=== PATIENT | male | born 1980 | race Caucasian/White ===

== ENCOUNTER 2018-08-24 15:19 | Observation (INO) ==
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
[2018-08-24] MEDS ORDERED: PEPCID 20 MG IV PREMIX* 20 MG/50 ML BAG IV PRN (17:57)
[2018-08-24] MEDS ORDERED: ZOFRAN INJ 4 MG VIAL IVP PRN (17:57)
[2018-08-24 18:32] LABS: BASOPHILS # (AUTO) 0.1 X10^3/uL (0.0-0.1); EOSINOPHILS # (AUTO) 0.3 x10^3/uL (0.0-0.2); HEMATOCRIT 48.8 % (42.0-54.0); LYMPHOCYTES # (AUTO) 2.7 X10^3/uL (1.3-2.9); LYMPHOCYTES % (AUTO) 27.2 % (21.0-51.0); MEAN CORPUSCULAR HEMOGLOBIN 30.3 pg (27.0-34.0); MEAN CORPUSCULAR HGB CONC 34.8 g/dL (33.0-35.0); MEAN CORPUSCULAR VOLUME 86.9 fL (80.0-100.0); MEAN PLATELET VOLUME 7.6 fL (7.4-11.0); MONOCYTES # (AUTO) 0.9 x10^3/uL (0.3-0.8); MONOCYTES % (AUTO) 8.7 % (0.0-13.0); NEUTROPHILS % (AUTO) 60.1 % (42.0-75.0); PLATELET COUNT 297 X10^3/uL (150.0-450.0); RED BLOOD COUNT 5.61 X10^6/uL (4.7-6.0); RED CELL DISTRIBUTION WIDTH 13.5 % (11.6-16.5); WHITE BLOOD COUNT 9.9 X10^3/uL (3.6-10.0)
[2018-08-24] MEDS: CIPRO IV 400 MG PREMIX* 400 MG/200 ML IV.SOLN. IV SCH ×2 (18:38→20:13)
[2018-08-24 18:39] LABS: ALANINE AMINOTRANSFERASE 48 Units/L (12-78); ALKALINE PHOSPHATASE 55 Units/L (46-116); AMYLASE 41 Units/L (25-115); ASPARTATE AMINO TRANSFERASE 25 Units/L (15-37); BLOOD UREA NITROGEN 9 mg/dL (7-18); CARBON DIOXIDE 27.7 mmol/L (21-32); CHLORIDE 101 mmol/L (98-107); CREATININE 1.14 mg/dL (0.70-1.30); LIPASE 183 Units/L (73-393); SODIUM 137 mmol/L (136-145); TOTAL PROTEIN 7.8 g/dL (6.4-8.2); eGFR NON BLACK RACES > 60 (>60)
[2018-08-24] MEDS: MORPHINE SULFATE INJ 2 MG INJ IVP PRN ×2 (18:39→22:52)
[2018-08-24] MEDS: PHENERGAN INJ 25 MG IVP PRN (18:39)
[2018-08-24] MEDS: NS 1000 ML 1,000 ML IV SCH (18:39)
[2018-08-24] MEDS: AMBIEN PO PRN (20:10)
[2018-08-24] MEDS: NICOTINE PATCH TD SCH (20:10)
[2018-08-24] MEDS: FLAGYL IV PREMIX 500 MG BAG 500 MG/100 ML BAG IV SCH (20:13)
[2018-08-24 22:44] LABS: BILIRUBIN,URINE NEGATIVE (NEGATIVE); BLOOD/HEMOGLOBIN,URINE NEGATIVE (NEGATIVE); GLUCOSE, URINE NEGATIVE (NEGATIVE); KETONES,URINE NEGATIVE (NEGATIVE); LEUKOCYTE ESTERASE ,URINE NEGATIVE (NEGATIVE); NITRITES,URINE NEGATIVE (NEGATIVE); PH,URINE 6.5 (5.0 - 8.0); PROTEIN,URINE NEGATIVE (NEGATIVE); UROBILINOGEN,URINE NORMAL (NORMAL)
[2018-08-24 22:45] LABS: APPEARANCE,URINE CLEAR (CLEAR); COLOR,URINE YELLOW (YELLOW)
[2018-08-25] MEDS: CIPRO IV 400 MG PREMIX* 400 MG/200 ML IV.SOLN. IV SCH ×3 (03:29→20:36)
[2018-08-25] MEDS: FLAGYL IV PREMIX 500 MG BAG 500 MG/100 ML BAG IV SCH ×4 (03:29→20:36)
[2018-08-25] MEDS: MORPHINE SULFATE INJ 2 MG INJ IVP PRN ×4 (03:43→20:38)
[2018-08-25] MEDS: NS 1000 ML 1,000 ML IV SCH ×3 (03:44→20:45)
[2018-08-25] MEDS: PHENERGAN INJ 25 MG IVP PRN ×2 (07:07→20:45)
[2018-08-25 07:42] LABS: BASOPHILS # (AUTO) 0.1 X10^3/uL (0.0-0.1); BASOPHILS % (AUTO) 0.9 % (0.2-1.0); EOSINOPHILS # (AUTO) 0.3 x10^3/uL (0.0-0.2); EOSINOPHILS % (AUTO) 4.1 % (0.9-2.9); HEMATOCRIT 46.1 % (42.0-54.0); LYMPHOCYTES # (AUTO) 2.1 X10^3/uL (1.3-2.9); LYMPHOCYTES % (AUTO) 26.3 % (21.0-51.0); MEAN CORPUSCULAR HEMOGLOBIN 29.6 pg (27.0-34.0); MEAN CORPUSCULAR HGB CONC 34.8 g/dL (33.0-35.0); MEAN CORPUSCULAR VOLUME 85.2 fL (80.0-100.0); MEAN PLATELET VOLUME 7.6 fL (7.4-11.0); MONOCYTES # (AUTO) 0.6 x10^3/uL (0.3-0.8); MONOCYTES % (AUTO) 8.1 % (0.0-13.0); NEUTROPHILS # (AUTO) 4.8 x10^3/uL (2.2-4.8); NEUTROPHILS % (AUTO) 60.6 % (42.0-75.0); PLATELET COUNT 269 X10^3/uL (150.0-450.0); RED BLOOD COUNT 5.41 X10^6/uL (4.7-6.0); RED CELL DISTRIBUTION WIDTH 13.7 % (11.6-16.5)
[2018-08-25 07:50] LABS: ALANINE AMINOTRANSFERASE 96 Units/L (12-78); ALBUMIN 3.6 g/dL (3.4-5.0); ALKALINE PHOSPHATASE 55 Units/L (46-116); ASPARTATE AMINO TRANSFERASE 86 Units/L (15-37); BLOOD UREA NITROGEN 10 mg/dL (7-18); CALCIUM 8.6 mg/dL (8.5-10.1); CARBON DIOXIDE 24.7 mmol/L (21-32); CHLORIDE 102 mmol/L (98-107); CREATININE 1.19 mg/dL (0.70-1.30); SODIUM 137 mmol/L (136-145); TOTAL PROTEIN 7.1 g/dL (6.4-8.2); eGFR NON BLACK RACES > 60 (>60)
[2018-08-25] MEDS: NICOTINE PATCH TD SCH (08:36)
[2018-08-25 10:48] LABS: STOOL FOR WBC NEGATIVE (NEGATIVE)
[2018-08-25] MEDS ORDERED: NS 100 ML IV 100 ML IV ONE (11:33)
--- NOTE | 2018-08-25 12:06 | CT ---
HISTORY: Acute abdominal pain. Study: CT abdomen and pelvis with contrast Comparison: None. Technique: Multiple axial images of the abdomen and pelvis were obtained from the lung bases to the pubic symphysis after the administration of IV contrast. Dose reduction techniques including Automated Exposure Control (AEC) and adjustment of mA and kV were utilized. Findings: Bibasilar scarring versus atelectasis. Otherwise, the visualized portions of the lung bases are unremarkable. Hepatomegaly and hepatic steatosis. No suspicious liver lesions. The spleen, pancreas, kidneys, and adrenal glands are unremarkable in their CT appearance. The gallbladder is unremarkable in its CT appearance. No significant mesenteric lymphadenopathy or stranding can be observed. No free fluid or free air is seen within the abdomen. Diverticulosis without CT evidence to suggest diverticulitis. Remaining large and small bowel are unremarkable. The appendix is surgically absent. The urinary bladder is grossly unremarkable. Degenerative changes of the spine. No aggressive osseous lesions. IMPRESSION: 1. No CT evidence of acute abdominal/pelvic pathology. 2. Other chronic findings as above. Reported By:
[2018-08-25 13:20] VITALS: BMI 31.7
--- NOTE | 2018-08-25 13:31 | PCM.PROG ---
Progress Note - Progress Note for Day of Date of Exam: 08/25/18 - Subjective Subjective: 38 WM DIRECT ADMIT ON 08/24 WITH ABDOMINAL PAIN, PROFUSE DIARRHEA WITH WEAKNESS. PT CO MUCOUS IN STOOL. PT WAS PREVIOSLY SEEN BY DR DAMON FOR PAIN, PENDING SCOPE. PT S/P GALLBLADDER REMOVAL ~6 MOS AGO, CO WORSENING DIARRRHEA SINCE THEN. PT WBC NORMAL AND RENAL FUCNCTION ALSO NORMAL. PT ON CIPRO AND FLAGYL WITH STOOL PENDING. PT IS NPO FOR CT THIS AM, WILL TRAIL ON WELCHOL AFTER STOOL SPECIMEN FOR TREATMENT OF CHRONIC DIARRHEA. - Past Medical Family Social History Past Med/Fam/Surg Hx: No changes since H&P Allergies: Allergies codeine Allergy (Verified 08/24/18 16:43) - Review of Systems ROS: No change since H&P - Vital Signs and I&O's Vital Signs: Temperature 97.9 F Pulse Rate [Right Brachial] 80 Respiratory Rate 18 Blood Pressure [Left Arm] 131/76 Blood Pressure [Right Arm] 121/76 O2 Sat by Pulse Oximetry 96 Intake and Output: Intake & Output 08/23/18 08/24/18 08/25/18 08/26/18 11:59 11:59 11:59 11:59 Intake Total 0 / 0 Balance 0 / 0 - Physical Exam Oriented: Normal Eyes: Normal Ear: Normal Nose: Normal Throat: Normal Cardiovascular: Normal : Normal Auscultation: Bowel Sounds: Normal Tenderness: LUQ, LLQ, Epigastric Skin: Normal Musculoskeletal: Normal Psychiatric: Normal Mood Description: Calm Affect: Normal Speech Pattern: Clear, Appropriate - Laboratory and Diagnostics Result Diagrams: 08/25/18 07:20 08/25/18 07:20 Labs: 08/25/18 10:05 Stool - Final Laboratory WBC 8.0 X10^3/uL (3.6-10.0) 08/25/18 07:20 RBC 5.41 X10^6/uL (4.7-6.0) 08/25/18 07:20 Hgb 16.0 g/dL (13.5-18.0) 08/25/18 07:20 Hct 46.1 % (42.0-54.0) 08/25/18 07:20 MCV 85.2 fL (80.0-100.0) 08/25/18 07:20 MCH 29.6 pg (27.0-34.0) 08/25/18 07:20 MCHC 34.8 g/dL (33.0-35.0) 08/25/18 07:20 RDW 13.7 % (11.6-16.5) 08/25/18 07:20 Plt Count 269 X10^3/uL (150.0-450.0) 08/25/18 07:20 MPV 7.6 fL (7.4-11.0) 08/25/18 07:20 Neut % (Auto) 60.6 % (42.0-75.0) 08/25/18 07:20 Lymph % (Auto) 26.3 % (21.0-51.0) 08/25/18 07:20 [place] % (Auto) 8.1 % (0.0-13.0) 08/25/18 07:20 Eos % (Auto) 4.1 % (0.9-2.9) H 08/25/18 07:20 Baso % (Auto) 0.9 % (0.2-1.0) 08/25/18 07:20 Neut # (Auto) 4.8 x10^3/uL (2.2-4.8) 08/25/18 07:20 Lymph # (Auto) 2.1 X10^3/uL (1.3-2.9) 08/25/18 07:20 [place] # (Auto) 0.6 x10^3/uL (0.3-0.8) 08/25/18 07:20 Eos # (Auto) 0.3 x10^3/uL (0.0-0.2) H 08/25/18 07:20 Baso # (Auto) 0.1 X10^3/uL (0.0-0.1) 08/25/18 07:20 Absolute Nucleated RBC 0.0 /100WBC 08/25/18 07:20 Sodium 137 mmol/L (136-145) 08/25/18 07:20 Corrected Sodium TNP 08/25/18 07:20 Potassium 4.0 mmol/L (3.5-5.1) 08/25/18 07:20 Chloride 102 mmol/L (98-107) 08/25/18 07:20 Carbon Dioxide 24.7 mmol/L (21-32) 08/25/18 07:20 BUN 10 mg/dL (7-18) 08/25/18 07:20 Creatinine 1.19 mg/dL (0.70-1.30) 08/25/18 07:20 Est GFR (MDRD) Af Amer > 60 (>60) 08/25/18 07:20 Est GFR (MDRD) Non-Af > 60 (>60) 08/25/18 07:20 Glucose 97 mg/dL (65-99) 08/25/18 07:20 Calcium 8.6 mg/dL (8.5-10.1) 08/25/18 07:20 Corrected Calcium TNP 08/25/18 07:20 Total Bilirubin 1.10 mg/dL (0.2-1.0) H 08/25/18 07:20 AST 86 Units/L (15-37) H 08/25/18 07:20 ALT 96 Units/L (12-78) H 08/25/18 07:20 Alkaline Phosphatase 55 Units/L (46-116) 08/25/18 07:20 Total Protein 7.1 g/dL (6.4-8.2) 08/25/18 07:20 Albumin 3.6 g/dL (3.4-5.0) 08/25/18 07:20 Globulin 3.5 g/dL (2.5-4.5) 08/25/18 07:20 Albumin/Globulin Ratio 1.0 Ratio (1.1-2.1) L 08/25/18 07:20 Amylase 41 Units/L (25-115) 08/24/18 18:09 Lipase 183 Units/L (73-393) 08/24/18 18:09 Specimen Type Clean catch urine 08/24/18 22:26 Urine Color Yellow (YELLOW) 08/24/18 22:26 Urine Appearance Clear (CLEAR) 08/24/18 22:26 Urine pH 6.5 (5.0 - 8.0) 08/24/18 22:26 Ur Specific Agar 1.010 (1.000-1.030) 08/24/18 22:26 Urine Protein Negative (NEGATIVE) 08/24/18 22:26 Urine Glucose (UA) Negative (NEGATIVE) 08/24/18 22:26 Urine Ketones Negative (NEGATIVE) 08/24/18 22:26 Urine Occult Blood Negative (NEGATIVE) 08/24/18 22:26 Urine Nitrite Negative (NEGATIVE) 08/24/18 22:26 Urine Bilirubin Negative (NEGATIVE) 08/24/18 22:26 Urine Urobilinogen Normal (NORMAL) 08/24/18 22:26 Ur Leukocyte Esterase Negative (NEGATIVE) 08/24/18 22:26 Stool Description 10g,brown,formed 08/25/18 10:05 Stl Occult Blood (IFOB) Negative (NEGATIVE) 08/25/18 10:05 Stool for White Cells Negative (NEGATIVE) 08/25/18 10:05 Stl C. diff Tox B Gene Negative (NEGATIVE) 08/25/18 10:05 Stl C. diff [id number] Negative (NEGATIVE) 08/25/18 10:05 - Plan (1) Abdominal pain Status: Acute Plan: Labs, CT ABD, Cipro, Flagyl, IVFs. ADVANCE DIET TOLERATED AFTER CT SCAN. STOOL STUDIES PENDING. PEPCID BID (2) Chronic diarrhea Status: Acute (3) Colitis Status: Acute Plan: Labs, CT ABD, Cipro, Flagyl, IVFs
[2018-08-25] MEDS: WELCHOL PO SCH (18:13)
[2018-08-25] MEDS ORDERED: VISTARIL PO PRN (18:30)
[2018-08-25] MEDS: AMBIEN PO PRN (20:36)
[2018-08-25] MEDS ORDERED: VORTIOXETINE 20 MG PO SCH (21:00)
[2018-08-26] MEDS: NS 1000 ML 1,000 ML IV SCH (01:09)
[2018-08-26] MEDS: FLAGYL IV PREMIX 500 MG BAG 500 MG/100 ML BAG IV SCH ×2 (02:12→08:33)
[2018-08-26] MEDS: MORPHINE SULFATE INJ 2 MG INJ IVP PRN ×2 (04:35→08:33)
[2018-08-26] MEDS: PHENERGAN INJ 25 MG IVP PRN (04:41)
[2018-08-26 05:31] LABS: ALANINE AMINOTRANSFERASE 64 Units/L (12-78); ALBUMIN 3.1 g/dL (3.4-5.0); ALKALINE PHOSPHATASE 50 Units/L (46-116); ASPARTATE AMINO TRANSFERASE 31 Units/L (15-37); BLOOD UREA NITROGEN 7 mg/dL (7-18); CALCIUM 8.1 mg/dL (8.5-10.1); CARBON DIOXIDE 26.3 mmol/L (21-32); CHLORIDE 103 mmol/L (98-107); COR CA(FOR HYPOALB) 8.8 mg/dL (8.5-10.1); CREATININE 1.25 mg/dL (0.70-1.30); SODIUM 139 mmol/L (136-145); TOTAL PROTEIN 6.4 g/dL (6.4-8.2); eGFR NON BLACK RACES > 60 (>60)
[2018-08-26 05:34] LABS: BASOPHILS # (AUTO) 0.1 X10^3/uL (0.0-0.1); EOSINOPHILS # (AUTO) 0.4 x10^3/uL (0.0-0.2); EOSINOPHILS % (AUTO) 5.9 % (0.9-2.9); HEMOGLOBIN 14.5 g/dL (13.5-18.0); LYMPHOCYTES # (AUTO) 1.9 X10^3/uL (1.3-2.9); LYMPHOCYTES % (AUTO) 26.2 % (21.0-51.0); MEAN CORPUSCULAR HEMOGLOBIN 29.6 pg (27.0-34.0); MEAN CORPUSCULAR HGB CONC 34.4 g/dL (33.0-35.0); MEAN PLATELET VOLUME 7.4 fL (7.4-11.0); MONOCYTES # (AUTO) 0.8 x10^3/uL (0.3-0.8); MONOCYTES % (AUTO) 10.6 % (0.0-13.0); NEUTROPHILS # (AUTO) 4.2 x10^3/uL (2.2-4.8); NEUTROPHILS % (AUTO) 56.3 % (42.0-75.0); PLATELET COUNT 249 X10^3/uL (150.0-450.0); RED BLOOD COUNT 4.88 X10^6/uL (4.7-6.0); RED CELL DISTRIBUTION WIDTH 13.7 % (11.6-16.5); WHITE BLOOD COUNT 7.4 X10^3/uL (3.6-10.0)
[2018-08-26] MEDS: WELCHOL PO SCH (06:08)
[2018-08-26] MEDS: CIPRO IV 400 MG PREMIX* 400 MG/200 ML IV.SOLN. IV SCH (08:33)
[2018-08-26] MEDS: NICOTINE PATCH TD SCH (08:33)
[2018-08-26 09:21] VITALS: BP 112/55
[2018-08-26] MEDS ORDERED: LIBRAX PO ONE (09:32)
[2018-08-30 06:58] LABS: ALLERGEN-GLUTEN 0.31
== END 2018-08-26 14:30 | disposition home or self-care (01) ==
LOC: MED/SURG
PROVIDERS: ADMIT Internal Medicine; ATTEND Internal Medicine
DX: K52.89 Other specified noninfective gastroenteritis and colitis; R10.84 Generalized abdominal pain; R19.7 Diarrhea, unspecified; Z87.19 Personal history of other diseases of the digestive system; R53.1 Weakness
CPT/HCPCS: 36415; 74177; 80053; 81003; 82150; 82270; 83630; 83690; 85025; 85652; 86003; 86140; 87045; 87427; 87449; 87493; 87899; 96367; 96374; A4222; S0028; S0030; G0378; J0744; J2270; J2405; J2550; J7030; J7050